=== PATIENT | male | born 1940 | race African-American/Black ===

== ENCOUNTER 2017-01-07 02:19 | Inpatient (IN) | payer MEDICARE, OTHER ==
[~2017-01-07] VITALS: Ht 175.3 cm; Wt 80.7 kg
[~2017-01-07 02:19] MED LIST: AMLO5TAB66 PO; CHOL10002 PO; DIVA500T52 PO; LISI-618 PO; RISP4TAB34 PO; SIMV20TA6 PO
[2017-01-07] MEDS ORDERED: BENZ0.5T6 PO (02:30)
[2017-01-07] MEDS ORDERED: KDUR20 PO (02:31)
[2017-01-07 02:50] LABS: BASOPHILS # (AUTO) 0.04 K/uL (0.00-0.20); BASOPHILS % (AUTO) 0.6 % (0.0-2.0); EOSINOPHILS # (AUTO) 0.77 K/uL (0.00-0.70); EOSINOPHILS % (AUTO) 11.33 % (1.0-6.0); HEMATOCRIT 31.4 % (41-53); HEMOGLOBIN 10.4 g/dL (13.5-17.5); LYMPHOCYTES # (AUTO) 1.8 K/uL (1.0-4.8); MEAN CORPUSCULAR HGB CONC 33.3 G/dL (31.0-37.0); MEAN CORPUSCULAR VOLUME 90 fL (80-100); MONOCYTES # (AUTO) 1.2 K/uL (0.1-1.0); MONOCYTES % (AUTO) 18.1 % (2.0-9.0); PLATELET COUNT (AUTO) 285 K/uL (150-450); RED BLOOD CELL COUNT(AUTO) 3.48 MIL/uL (4.50-5.90); RED CELL DISTRIBUTION WIDTH 14.9 % (11.5-14.5); WHITE BLOOD COUNT (AUTO) 6.8 K/uL (4.5-11.0)
[2017-01-07] MEDS ORDERED: IPRATROPIUM BROMIDE 0.5 MG/2.5 ML NEB SOLUTION NEB ONE ×2 (03:00→03:45)
[2017-01-07] MEDS ORDERED: ALBUTEROL SULFATE 2.5 MG/0.5 ML NEB SOLUTION NEB ONE (03:00)
[2017-01-07 03:14] LABS: B-TYPE NATRIURETIC PEPTIDE 30 pg/mL (0-100)
[2017-01-07 03:22] LABS: ALANINE AMINOTRANSFERASE 15 U/L (12-78); ALBUMIN 2.8 g/dL (3.4-5.0); ANION GAP 5 mmol/L (8-16); ASPARTATE AMINOTRANSFERASE 27 U/L (15-37); BILIRUBIN,TOTAL 0.4 mg/dL (0.1-1.0); CARBON DIOXIDE 29 mmol/L (22-29); CHLORIDE 95 mmol/L (98-107); CREATINE KINASE, TOTAL 231 U/L (39-308); CREATININE 1.23 mg/dL (0.60-1.30); GLOMERULAR FILTR. RATE CALC > 60 mL/min (>60); POTASSIUM 4.9 mmol/L (3.5-5.1); SODIUM SERUM 129 mmol/L (136-145); TOTAL PROTEIN, SERUM 7.4 g/dL (6.4-8.2); UREA NITROGEN, BLOOD 23 mg/dL (7-18)
[2017-01-07 03:27] LABS: CALCIUM, TOTAL 13.6 mg/dL (8.8-10.5)
[2017-01-07] MEDS ORDERED: FUROSEMIDE 40 MG/4 ML VIAL IVP ONE (03:45)
[2017-01-07] MEDS ORDERED: CefTRIAXone 1 GM/DEXTROSE 50 ML IV ONE (03:45)
[2017-01-07] MEDS ORDERED: ALBUTEROL SULFATE 5 MG/ML 20 ML NEB SOLN [BULK] NEB ONE (03:45)
[2017-01-07 03:56] LABS: INFLUENZA TYPE B NEGATIVE FOR TYPE B (NEGATIVE)
[2017-01-07] MEDS ORDERED: ONDANSETRON HCL 4 MG/2 ML VIAL IVP PRN ×2 (04:15→04:45)
[2017-01-07] MEDS ORDERED: 0.9% SODIUM CHLORIDE 10 ML SYRINGE IVP PRN (04:15)
[2017-01-07] MEDS ORDERED: ACETAMINOPHEN 325 MG TABLET PO PRN ×2 (04:15→04:45)
[2017-01-07 04:30] LABS: APPEARANCE,URINE CLEAR (CLEAR); GLUCOSE, URINE (UA) NEGATIVE (NEGATIVE); KETONES,URINE NEGATIVE (NEGATIVE); LEUKOCYTE ESTERASE ,URINE NEGATIVE (NEGATIVE); OCCULT BLOOD,URINE NEGATIVE (NEGATIVE); PH,URINE 6.5 (5.0-8.0); PROTEIN,URINE NEGATIVE (NEGATIVE)
[2017-01-07 04:33] LABS: ADD UA MICROSCOPIC NO
[2017-01-07] MEDS ORDERED: OxyCODONE HCL/ACETAMINOPHEN 5-325 MG TABLET PO PRN (04:45)
[2017-01-07] MEDS ORDERED: ZOLPIDEM TARTRATE 5 MG TABLET PO PRN (04:45)
[2017-01-07] MEDS ORDERED: MAGNESIUM HYDROXIDE SUSPENSION 30 ML UDCUP PO PRN (04:45)
[2017-01-07] MEDS ORDERED: BISACODYL 10 MG RECTAL RECTAL SUPPOSITORY PR PRN (04:45)
[2017-01-07 04:57] VITALS: BP 108/54
[2017-01-07] MEDS: SODIUM CHLORIDE 0.9% 1,000 ML IV SCH ×3 (05:54→22:32)
[2017-01-07] MEDS: AZITHROMYCIN 500 MG/NS 250 ML IV SCH (06:08)
[2017-01-07] MEDS ORDERED: NICOTINE POLACRILEX 4 MG LOZENGE PO PRN (06:15)
[2017-01-07 07:45] VITALS: BP 94/50
[2017-01-07] MEDS: HEPARIN SODIUM,PORCINE 5,000 UNITS/ML VIAL SQ SCH ×2 (08:39→20:47)
[2017-01-07] MEDS: BENZTROPINE MESYLATE 0.5 MG TABLET PO SCH ×2 (08:39→20:46)
[2017-01-07] MEDS: SIMVASTATIN 20 MG TABLET PO SCH (08:39)
[2017-01-07 11:15] VITALS: BP 119/66
[2017-01-07] MEDS ORDERED: DENTURE ADHESIVE 68 GM CREAM DT PRN (12:00)
[2017-01-07] MEDS ORDERED: BENZ1TAB10 PO (12:05)
[2017-01-07] MEDS ORDERED: AMLO-512 PO (12:05)
[2017-01-07] MEDS: PANTOPRAZOLE SODIUM 40 MG DR TABLET PO SCH (12:54)
[2017-01-07] MEDS: LISINOPRIL 20 MG TABLET PO SCH (12:54)
[2017-01-07] MEDS: AmLODIPine BESYLATE 5 MG TABLET PO SCH (12:54)
[2017-01-07 16:30] VITALS: BP 109/59
[2017-01-07 18:55] VITALS: BP 109/48
[2017-01-07] MEDS: RisperiDONE 4 MG TABLET PO SCH (20:46)
[2017-01-07] MEDS: DIVALPROEX SODIUM 500 MG ER TABLET PO SCH (20:46)
[2017-01-08 00:27] VITALS: BP 121/51
[2017-01-08 04:35] VITALS: BP 118/56
[2017-01-08] MEDS: SODIUM CHLORIDE 0.9% 1,000 ML IV SCH ×3 (06:10→22:45)
[2017-01-08] MEDS: AZITHROMYCIN 500 MG/NS 250 ML IV SCH (06:10)
[2017-01-08 07:07] LABS: BASOPHILS % (AUTO) 0.4 % (0.0-2.0); EOSINOPHILS % (AUTO) 11.5 % (1.0-6.0); HEMATOCRIT 31.2 % (41-53); HEMOGLOBIN 10.1 g/dL (13.5-17.5); LYMPHOCYTES # (AUTO) 1.5 K/uL (1.0-4.8); LYMPHOCYTES % (AUTO) 25.2 % (22.0-44.0); MEAN CORPUSCULAR HEMOGLOBIN 29.8 pg (26.0-34.0); MEAN CORPUSCULAR HGB CONC 32.2 G/dL (31.0-37.0); MEAN CORPUSCULAR VOLUME 93 fL (80-100); MONOCYTES # (AUTO) 1.3 K/uL (0.1-1.0); MONOCYTES % (AUTO) 20.5 % (2.0-9.0); NEUTROPHILS # (AUTO) 2.6 K/uL (1.8-7.7); NEUTROPHILS % (AUTO) 42.4 % (40.0-70.0); PLATELET COUNT (AUTO) 298 K/uL (150-450); RED BLOOD CELL COUNT(AUTO) 3.37 MIL/uL (4.50-5.90); RED CELL DISTRIBUTION WIDTH 14.4 % (11.5-14.5); WHITE BLOOD COUNT (AUTO) 6.2 K/uL (4.5-11.0)
[2017-01-08 07:28] VITALS: BP 116/76
[2017-01-08 07:34] LABS: ALANINE AMINOTRANSFERASE 11 U/L (12-78); ALBUMIN 2.5 g/dL (3.4-5.0); ANION GAP 3 mmol/L (8-16); ASPARTATE AMINOTRANSFERASE 28 U/L (15-37); BILIRUBIN,TOTAL 0.2 mg/dL (0.1-1.0); CARBON DIOXIDE 29 mmol/L (22-29); CHLORIDE 103 mmol/L (98-107); CHOL/HDL RATIO 2.3 (4.2-7.3); CREATININE 0.86 mg/dL (0.60-1.30); GLOMERULAR FILTR. RATE CALC > 60 mL/min (>60); PHOSPHORUS 2.5 mg/dL (2.5-4.9); POTASSIUM 4.9 mmol/L (3.5-5.1); SODIUM SERUM 135 mmol/L (136-145); THYROID STIMULATING HORMONE 1.74 uIU/mL (0.36-3.74); TOTAL PROTEIN, SERUM 6.7 g/dL (6.4-8.2); UREA NITROGEN, BLOOD 15 mg/dL (7-18)
[2017-01-08 07:38] LABS: CALCIUM, TOTAL 12.4 mg/dL (8.8-10.5)
[2017-01-08 08:10] LABS: RBC MORPHOLOGY COMMENT NORMAL RBC MORPH
[2017-01-08] MEDS: BENZTROPINE MESYLATE 0.5 MG TABLET PO SCH ×2 (09:45→21:08)
[2017-01-08] MEDS: CefTRIAXone 1 GM/DEXTROSE 50 ML IV SCH (09:45)
[2017-01-08] MEDS: AmLODIPine BESYLATE 5 MG TABLET PO SCH (09:45)
[2017-01-08] MEDS: HEPARIN SODIUM,PORCINE 5,000 UNITS/ML VIAL SQ SCH ×2 (09:45→21:09)
[2017-01-08] MEDS: LISINOPRIL 20 MG TABLET PO SCH (09:45)
[2017-01-08] MEDS: PANTOPRAZOLE SODIUM 40 MG DR TABLET PO SCH (09:45)
[2017-01-08] MEDS: SIMVASTATIN 20 MG TABLET PO SCH (09:45)
[2017-01-08 10:54] VITALS: BP 102/58
[2017-01-08 15:08] VITALS: BP 112/52
[2017-01-08] MEDS: ALBUTEROL SULFATE 2.5 MG/0.5 ML NEB SOLUTION NEB PRN (15:59)
[2017-01-08] MEDS: IPRATROPIUM BROMIDE 0.5 MG/2.5 ML NEB SOLUTION NEB PRN (15:59)
[2017-01-08] MEDS ORDERED: IOVERSOL 350 MG/ML 100 ML VIAL ONE (16:53)
[2017-01-08 20:06] VITALS: BP 154/57
[2017-01-08] MEDS: RisperiDONE 4 MG TABLET PO SCH (21:08)
[2017-01-08] MEDS: DIVALPROEX SODIUM 500 MG ER TABLET PO SCH (21:08)
[2017-01-09 00:01] VITALS: BP 122/65
[2017-01-09 06:00] VITALS: BP 122/57
[2017-01-09] MEDS: AZITHROMYCIN 500 MG/NS 250 ML IV SCH (06:04)
[2017-01-09 06:41] LABS: PROTHROMBIN TIME 10.7 SEC (9.4-11.6)
[2017-01-09 06:43] LABS: ANION GAP 2 mmol/L (8-16); CARBON DIOXIDE 31 mmol/L (22-29); CHLORIDE 103 mmol/L (98-107); CREATININE 0.86 mg/dL (0.60-1.30); GLOMERULAR FILTR. RATE CALC > 60 mL/min (>60); PHOSPHORUS 2.7 mg/dL (2.5-4.9); POTASSIUM 5.4 mmol/L (3.5-5.1); SODIUM SERUM 136 mmol/L (136-145); TOTAL PROTEIN, SERUM 6.7 g/dL (6.4-8.2); UREA NITROGEN, BLOOD 14 mg/dL (7-18)
[2017-01-09 07:28] LABS: CALCIUM, TOTAL 12.9 mg/dL (8.8-10.5)
[2017-01-09 07:40] LABS: LACTATE DEHYDROGENASE 216 U/L (85-227)
[2017-01-09 08:03] LABS: B-TYPE NATRIURETIC PEPTIDE 30 pg/mL (0-100)
[2017-01-09] MEDS: LISINOPRIL 20 MG TABLET PO SCH (08:39)
[2017-01-09] MEDS: HEPARIN SODIUM,PORCINE 5,000 UNITS/ML VIAL SQ SCH ×2 (08:39→21:14)
[2017-01-09] MEDS: PANTOPRAZOLE SODIUM 40 MG DR TABLET PO SCH (08:39)
[2017-01-09 08:40] VITALS: BP 110/58
[2017-01-09] MEDS: SIMVASTATIN 20 MG TABLET PO SCH (08:40)
[2017-01-09] MEDS: BENZTROPINE MESYLATE 0.5 MG TABLET PO SCH ×2 (08:40→21:14)
[2017-01-09] MEDS: AmLODIPine BESYLATE 5 MG TABLET PO SCH (08:40)
[2017-01-09] MEDS: CefTRIAXone 1 GM/DEXTROSE 50 ML IV SCH (09:18)
[2017-01-09] MEDS: SODIUM CHLORIDE 0.9% 1,000 ML IV SCH ×2 (09:22→14:45)
[2017-01-09] MEDS ORDERED: FUROSEMIDE 20 MG/2 ML VIAL IVP ONE (10:30)
[2017-01-09 11:44] VITALS: BP 149/87
[2017-01-09] MEDS ORDERED: PAMIDRONATE DISODIUM 90 MG in SODIUM CHLORIDE 0.9% 500 ML IV ONE (14:00)
[2017-01-09 16:08] VITALS: BP 132/73
[2017-01-09 20:04] VITALS: BP 107/60
[2017-01-09] MEDS: DIVALPROEX SODIUM 500 MG ER TABLET PO SCH (21:14)
[2017-01-09] MEDS: RisperiDONE 4 MG TABLET PO SCH (21:14)
[2017-01-10] VITALS (7 sets, daily range): BP systolic 97–130; BP diastolic 50–75
[2017-01-10] MEDS: ALBUTEROL SULFATE 2.5 MG/0.5 ML NEB SOLUTION NEB PRN ×2 (00:21→11:03)
[2017-01-10] MEDS: IPRATROPIUM BROMIDE 0.5 MG/2.5 ML NEB SOLUTION NEB PRN ×2 (00:21→11:03)
[2017-01-10] MEDS: SODIUM CHLORIDE 0.9% 1,000 ML IV SCH ×3 (02:35→14:45)
[2017-01-10] MEDS: AZITHROMYCIN 500 MG/NS 250 ML IV SCH (05:42)
[2017-01-10] MEDS: CefTRIAXone 1 GM/DEXTROSE 50 ML IV SCH (09:02)
[2017-01-10] MEDS: BENZTROPINE MESYLATE 0.5 MG TABLET PO SCH ×2 (09:03→20:36)
[2017-01-10] MEDS: AmLODIPine BESYLATE 5 MG TABLET PO SCH (09:03)
[2017-01-10] MEDS: PANTOPRAZOLE SODIUM 40 MG DR TABLET PO SCH (09:03)
[2017-01-10] MEDS: LISINOPRIL 20 MG TABLET PO SCH (09:04)
[2017-01-10] MEDS: HEPARIN SODIUM,PORCINE 5,000 UNITS/ML VIAL SQ SCH ×2 (09:04→20:36)
[2017-01-10] MEDS: SIMVASTATIN 20 MG TABLET PO SCH (09:04)
[2017-01-10] MEDS ORDERED: 0.9% SODIUM CHLORIDE 15 ML NEB SOLUTION NEB ONE (11:53)
[2017-01-10] MEDS: DIVALPROEX SODIUM 500 MG ER TABLET PO SCH (20:36)
[2017-01-10] MEDS: RisperiDONE 4 MG TABLET PO SCH (20:36)
[2017-01-10] MEDS ORDERED: 0.9% SODIUM CHLORIDE 5 ML NEB SOLUTION NEB ONE (22:56)
[2017-01-11] MEDS: SODIUM CHLORIDE 0.9% 1,000 ML IV SCH ×4 (01:26→22:07)
[2017-01-11 05:00] VITALS: BP 144/98
[2017-01-11] MEDS: AZITHROMYCIN 500 MG/NS 250 ML IV SCH (05:31)
[2017-01-11 07:29] LABS: BASOPHILS % (AUTO) 0.2 % (0.0-2.0); EOSINOPHILS % (AUTO) 12.3 % (1.0-6.0); HEMATOCRIT 30.8 % (41-53); HEMOGLOBIN 9.8 g/dL (13.5-17.5); LYMPHOCYTES # (AUTO) 1.5 K/uL (1.0-4.8); LYMPHOCYTES % (AUTO) 30.1 % (22.0-44.0); MEAN CORPUSCULAR HEMOGLOBIN 29.3 pg (26.0-34.0); MEAN CORPUSCULAR HGB CONC 31.8 G/dL (31.0-37.0); MEAN CORPUSCULAR VOLUME 92 fL (80-100); MONOCYTES % (AUTO) 19.6 % (2.0-9.0); NEUTROPHILS # (AUTO) 1.9 K/uL (1.8-7.7); NEUTROPHILS % (AUTO) 37.8 % (40.0-70.0); PLATELET COUNT (AUTO) 297 K/uL (150-450); RED BLOOD CELL COUNT(AUTO) 3.34 MIL/uL (4.50-5.90); RED CELL DISTRIBUTION WIDTH 14.9 % (11.5-14.5); WHITE BLOOD COUNT (AUTO) 5.1 K/uL (4.5-11.0)
[2017-01-11 07:35] VITALS: BP 126/69
[2017-01-11 07:44] LABS: ANION GAP 3 mmol/L (8-16); CALCIUM, TOTAL 11.5 mg/dL (8.8-10.5); CARBON DIOXIDE 31 mmol/L (22-29); CHLORIDE 102 mmol/L (98-107); CREATININE 0.78 mg/dL (0.60-1.30); GLOMERULAR FILTR. RATE CALC > 60 mL/min (>60); PHOSPHORUS 2.5 mg/dL (2.5-4.9); POTASSIUM 4.9 mmol/L (3.5-5.1); SODIUM SERUM 136 mmol/L (136-145); UREA NITROGEN, BLOOD 11 mg/dL (7-18)
[2017-01-11 08:15] LABS: B-TYPE NATRIURETIC PEPTIDE 37 pg/mL (0-100)
[2017-01-11] MEDS: AmLODIPine BESYLATE 5 MG TABLET PO SCH (09:40)
[2017-01-11] MEDS: BENZTROPINE MESYLATE 0.5 MG TABLET PO SCH ×2 (09:40→20:24)
[2017-01-11] MEDS: CefTRIAXone 1 GM/DEXTROSE 50 ML IV SCH (09:40)
[2017-01-11] MEDS: LISINOPRIL 20 MG TABLET PO SCH (09:41)
[2017-01-11] MEDS: PANTOPRAZOLE SODIUM 40 MG DR TABLET PO SCH (09:41)
[2017-01-11] MEDS: HEPARIN SODIUM,PORCINE 5,000 UNITS/ML VIAL SQ SCH ×2 (09:41→20:24)
[2017-01-11] MEDS: SIMVASTATIN 20 MG TABLET PO SCH (09:41)
[2017-01-11 11:04] VITALS: BP 103/54
[2017-01-11] MEDS ORDERED: MAGNESIUM SULFATE 2 GM in DEXTROSE 5%-WATER 50 ML IV ONE (14:30)
[2017-01-11 16:13] VITALS: BP 121/75
[2017-01-11] MEDS: IPRATROPIUM BROMIDE 0.5 MG/2.5 ML NEB SOLUTION NEB PRN (16:20)
[2017-01-11] MEDS: ALBUTEROL SULFATE 2.5 MG/0.5 ML NEB SOLUTION NEB PRN (16:20)
[2017-01-11] MEDS ORDERED: SODIUM CHLORIDE 3% 15 ML NEB SOLUTION NEB ONE (16:23)
[2017-01-11 19:28] VITALS: BP 130/55
[2017-01-11] MEDS: RisperiDONE 4 MG TABLET PO SCH (20:24)
[2017-01-11] MEDS: DIVALPROEX SODIUM 500 MG ER TABLET PO SCH (20:24)
[2017-01-12 00:03] VITALS: BP 122/68
[2017-01-12 04:25] VITALS: BP 106/51
[2017-01-12] MEDS: AZITHROMYCIN 500 MG/NS 250 ML IV SCH (05:53)
[2017-01-12] MEDS: SODIUM CHLORIDE 0.9% 1,000 ML IV SCH ×3 (05:53→23:07)
[2017-01-12 07:32] VITALS: BP 98/59
[2017-01-12] MEDS: BENZTROPINE MESYLATE 0.5 MG TABLET PO SCH ×2 (09:07→20:41)
[2017-01-12] MEDS: CefTRIAXone 1 GM/DEXTROSE 50 ML IV SCH (09:07)
[2017-01-12] MEDS: HEPARIN SODIUM,PORCINE 5,000 UNITS/ML VIAL SQ SCH ×2 (09:08→20:41)
[2017-01-12] MEDS: SIMVASTATIN 20 MG TABLET PO SCH (09:08)
[2017-01-12] MEDS: LISINOPRIL 20 MG TABLET PO SCH (09:08)
[2017-01-12] MEDS: AmLODIPine BESYLATE 5 MG TABLET PO SCH (09:08)
[2017-01-12] MEDS: PANTOPRAZOLE SODIUM 40 MG DR TABLET PO SCH (09:08)
[2017-01-12 11:40] VITALS: BP 100/56
[2017-01-12 20:17] VITALS: BP 131/73
[2017-01-12] MEDS: DIVALPROEX SODIUM 500 MG ER TABLET PO SCH (20:41)
[2017-01-12] MEDS: RisperiDONE 4 MG TABLET PO SCH (20:41)
[2017-01-12 23:44] VITALS: BP 135/82
[2017-01-13 04:26] VITALS: BP 130/70
[2017-01-13] MEDS: AZITHROMYCIN 500 MG/NS 250 ML IV SCH (05:29)
[2017-01-13] MEDS: SODIUM CHLORIDE 0.9% 1,000 ML IV SCH ×3 (05:46→23:55)
[2017-01-13 07:35] VITALS: BP 126/70
[2017-01-13 11:03] VITALS: BP 134/76
[2017-01-13 12:38] VITALS: BP 131/73
[2017-01-13 14:12] LABS: APPEARANCE,UNSPUN,BODY FLUID HAZY (CLEAR); COLOR,BODY FLUID YELLOW (LT YELLOW)
[2017-01-13] MEDS: AmLODIPine BESYLATE 5 MG TABLET PO SCH (14:27)
[2017-01-13] MEDS: PANTOPRAZOLE SODIUM 40 MG DR TABLET PO SCH (14:27)
[2017-01-13] MEDS: CefTRIAXone 1 GM/DEXTROSE 50 ML IV SCH (14:27)
[2017-01-13] MEDS: LISINOPRIL 20 MG TABLET PO SCH (14:27)
[2017-01-13] MEDS: HEPARIN SODIUM,PORCINE 5,000 UNITS/ML VIAL SQ SCH ×2 (14:28→21:30)
[2017-01-13] MEDS: BENZTROPINE MESYLATE 0.5 MG TABLET PO SCH ×2 (14:28→21:30)
[2017-01-13] MEDS: SIMVASTATIN 20 MG TABLET PO SCH (14:28)
[2017-01-13 15:30] VITALS: BP 104/55
[2017-01-13 19:49] VITALS: BP 127/53
[2017-01-13] MEDS: DIVALPROEX SODIUM 500 MG ER TABLET PO SCH (21:30)
[2017-01-13] MEDS: RisperiDONE 4 MG TABLET PO SCH (21:30)
[2017-01-14 00:01] VITALS: BP 144/77
[2017-01-14 04:02] VITALS: BP 128/72
[2017-01-14] MEDS: AZITHROMYCIN 500 MG/NS 250 ML IV SCH (05:56)
[2017-01-14 08:14] VITALS: BP 107/71
[2017-01-14] MEDS: HEPARIN SODIUM,PORCINE 5,000 UNITS/ML VIAL SQ SCH (08:28)
[2017-01-14] MEDS: AmLODIPine BESYLATE 5 MG TABLET PO SCH (08:28)
[2017-01-14] MEDS: SIMVASTATIN 20 MG TABLET PO SCH (08:28)
[2017-01-14] MEDS: PANTOPRAZOLE SODIUM 40 MG DR TABLET PO SCH (08:28)
[2017-01-14] MEDS: BENZTROPINE MESYLATE 0.5 MG TABLET PO SCH (08:28)
[2017-01-14] MEDS: LISINOPRIL 20 MG TABLET PO SCH (08:34)
[2017-01-14] MEDS ORDERED: LIDOCAINE HCL 5% TRANSDERMAL PATCH TD SCH (09:45)
[2017-01-14] MEDS: CefTRIAXone 1 GM/DEXTROSE 50 ML IV SCH (09:47)
[2017-01-14] MEDS: SODIUM CHLORIDE 0.9% 1,000 ML IV SCH (09:47)
[2017-01-14 12:00] VITALS: BP 99/50
[2017-01-14 15:15] VITALS: BP 121/66
[2017-01-14] MEDS ORDERED: MAGNESIUM OXIDE 400 MG TABLET PO ONE (15:15)
[2017-01-14 16:42] LABS: TOTAL PROTEIN,BODY FLUID,REF 3.8 g/dL
[2017-01-14] MEDS ORDERED: ACET-784 PO (16:53)
[2017-01-14] MEDS ORDERED: AUD NEB (16:55)
[2017-01-14] MEDS ORDERED: IPRA3AMP4 NEB (16:57)
[2017-01-14] MEDS ORDERED: MOM30 PO (16:57)
[2017-01-14] MEDS ORDERED: NICO2GUM PO (16:59)
[2017-01-14] MEDS ORDERED: ONDA4 PO (17:00)
[2017-01-14] MEDS ORDERED: OXYC-341 PO (17:02)
[2017-01-14] MEDS ORDERED: ZOLP5 PO (17:03)
[2017-01-14] MEDS ORDERED: -LIDODERM PATCH NOTE- MISC SCH ×2 (21:00)
== END 2017-01-14 18:15 | disposition home or self-care (01) | DRG 180 ==
LOC: EMS 02:20 → 5S 03:42 → 5N 01-08 16:55
PROVIDERS: ADMIT Internal Medicine; ATTEND Internal Medicine
PROC: 0W9B3ZZ Drainage of Left Pleural Cavity, Percutaneous Approach (ICD-10-PCS; principal; 2017-01-13)
DX: C34.90 Malignant neoplasm of unspecified part of unspecified bronchus or lung (principal); J18.9 Pneumonia, unspecified organism; E43 Unspecified severe protein-calorie malnutrition; E87.1 Hypo-osmolality and hyponatremia; J90 Pleural effusion, not elsewhere classified; I50.32 Chronic diastolic (congestive) heart failure; J91.0 Malignant pleural effusion; I11.0 Hypertensive heart disease with heart failure; E83.52 Hypercalcemia; M19.90 Unspecified osteoarthritis, unspecified site; E78.5 Hyperlipidemia, unspecified; E55.9 Vitamin D deficiency, unspecified; F20.9 Schizophrenia, unspecified; F17.200 Nicotine dependence, unspecified, uncomplicated; E86.0 Dehydration; D64.9 Anemia, unspecified; Z79.899 Other long term (current) drug therapy
CPT/HCPCS: 32555; 71260; 76942; 82150; 82306; 82465; 82945; 83605; 83615; 83735; 83986; 84100; 84145; 84155; 84157; 84443; 85379; 87015; 87040; 87070; 87101; 87205; 87804; 88108; 88341; 88342; 89051; 92610; 93005; 93306; 94640; 94799; 96365; 96375; 97162; 97530; 99285; J0456; J0696; J1644; J1940; J2430; J3475; J7030; J7040; J7060